=== PATIENT | male | born 1980 ===

== ENCOUNTER 2024-01-12 16:53 | Emergency (ER) | payer OTHER ==
[~2024-01-12] VITALS: Ht 182.9 cm; Wt 86.2 kg
[2024-01-12 17:10] VITALS: BP 160/117; PULSE 97; RESP 18; TEMP 97.9; O2SAT 97
[2024-01-12 17:18] VITALS: BP 160/117; PULSE 97; RESP 18; TEMP 97.9; O2SAT 97
[2024-01-12] MEDS ORDERED: BOOSTRIX IM ONE (17:22)
[2024-01-12] MEDS: BOOSTRIX IM ONE (17:31)
[2024-01-12 18:03] VITALS: BP 125/91; PULSE 88; RESP 18; TEMP 97.9; O2SAT 97
== END 2024-01-12 18:04 | disposition home or self-care (01) ==
LOC: ER 16:53
DX: S61.214A Laceration without foreign body of right ring finger without damage to nail, initial encounter (principal); X58.XXXA Exposure to other specified factors, initial encounter; Y93.89 Activity, other specified; Y92.89 Other specified places as the place of occurrence of the external cause; Y99.8 Other external cause status
CPT/HCPCS: 12002; 90471; 90715; 99283